=== PATIENT | female | born 1995 | race Caucasian/White ===

== ENCOUNTER 2018-12-12 10:04 | Emergency (ER) | payer OTHER ==
[2018-12-12] MEDS: LORAZEPAM 1 MG TAB PO (11:06)
[2018-12-12 11:23] LABS: ADD UMIC NO; UR ASCORBIC ACID NEGATIVE (NEGATIVE); UR BILIRUBIN (Dip) NEGATIVE (NEGATIVE); UR BLOOD (Dip) NEGATIVE (NEGATIVE); UR CLARITY CLEAR (CLEAR); UR COLOR STRAW (YELLOW); UR GLUCOSE (Dip) NEGATIVE (NEGATIVE); UR KETONES (Dip) NEGATIVE (NEGATIVE); UR LEUKOCYTE ESTERASE (Dip) NEGATIVE Leu/ul (NEGATIVE); UR NITRITE (Dip) NEGATIVE (NEGATIVE); UR SPECIFIC GRAVITY (Dip) 1.003 (1.003-1.030); UR TOTAL PROTEIN (Dip) NEGATIVE (NEGATIVE); UR UROBILINOGEN (Dip) NEGATIVE (NEGATIVE)
== END 2018-12-12 11:48 | disposition home or self-care (01) ==
LOC: FTE 10:04
DX: H57.9 Unspecified disorder of eye and adnexa (principal); R30.0 Dysuria; M25.512 Pain in left shoulder
CPT/HCPCS: 81003; 81025; 82962; 93005; 99284-25